=== PATIENT | male | born 1975 | race Hispanic/Latino ===

== ENCOUNTER → 2016-05-08 | Outpatient (CLI) | payer MEDICARE, OTHER ==
--- NOTE | 2016-05-08 10:41 | REP ---
MRI LUMBAR SPINE WITHOUT AND WITH CONTRAST: HISTORY: Back pain. CONTRAST: ProHance 25.6 mL. There is no disc bulge or herniation at the L1-2 and L2-3 levels. The nerves exit the neural foramina without compression. A diffuse disc bulge is present at the L3-4 level. This abuts the thecal sac. The L3 nerves exit the neural foramina without compression. A diffuse disc bulge is present at the L4-5 level. This abuts the thecal sac. The L4 nerves exit the neural foramina without compression. A diffuse disc bulge is present at the L5-S1 level. There is no thecal sac or nerve compression. There is hypertrophy of the posterior articulating facets. The L5 nerves exit the neural foramina without compression. The conus medullaris is normal in appearance terminating at the level of the T12-L1 intervertebral disc. Normal signal intensity is present in the lumbar intervertebral discs and vertebral bodies. IMPRESSION: 1. Diffuse disc bulges at the L3-4 and L4-5 levels. The disc bulges abut the thecal sac. 2. Diffuse disc bulge at the L5-S1 level without thecal sac or nerve compression. Signed by Karthikeyan Rene MD 05/08/2016 10:54 A
== END ==
LOC: M RAD 09:03
PROVIDERS: ATTEND Family Medicine
DX: M54.5 Low back pain (principal)
CPT/HCPCS: 72158; A9576